=== PATIENT | female | born 1995 | race Caucasian/White ===

== ENCOUNTER 2020-11-12 10:02 | Emergency (ER) | payer OTHER, SELFPAY ==
--- NOTE | 2020-11-12 10:05 | ED.SKABFB ---
HPI - Skin/Abscess/Foreign Bdy General Chief complaint: Extremity Problem,Nontraumatic Stated complaint: rt hand lump on finger Time Seen by Provider: 11/12/20 10:05 Source: patient and RN notes reviewed History of Present Illness HPI narrative: Patient is a 25-year-old female who presents the urgent care with complaints of a hard lump on her right index finger. Patient states it has been there approximately 3 or 4 weeks and it does not seem to bother her unless she hits it on something . Patient states that it seems to have possibly gotten larger. Denies of any known injury to the finger. Currently denies of any pain. Denies of any swelling or redness. No other acute complaints. No acute distress noted. Patient aware of the plan of care. Some parts of this dictation were generated by voice recognition software and may contain typographical and/or grammatical inaccuracies. Related Data Home Medications Medication Instructions Recorded Confirmed norgestimate 0.25 mg-ethinyl 1 tablet PO DAILY 10/28/19 estradiol 35 mcg tablet Allergies Allergy/AdvReac Type Severity Reaction Status Date / Time No Known Allergies Allergy Unknown Verified 11/12/20 10:13 Review of Systems Review of Systems: Narrative: CONSTITUTIONAL: Denies fever, chills, or sweats. EYES: Denies visual changes, redness, or discharge. ENT: Denies rhinorrhea, congestion, sore throat, or otalgia. CARDIOVASCULAR: Denies chest pain, palpitations, or edema. RESPIRATORY: Denies cough or dyspnea. GASTROINTESTINAL: Denies abdominal pain, nausea, vomiting, or diarrhea. GENITOURINARY: Denies dysuria or hematuria. SKIN: Reports of a lump on the right index finger MUSCULOSKELETAL: Denies back pain, joint pain, or myalgia. NEUROLOGIC: Denies headache, numbness, or weakness. All other systems reviewed are negative, except as documented in HPI. [facility] Past Medical History Medical History (Updated 11/12/20 @ 10:14 by MATT Baltazar) Depression POLLO (generalized anxiety disorder) Surgical History Surgical History H/O foot surgery s/p plantar fasciitis surgery on R x 2 Family History Family History Father Hypertension Social History Social History (Updated 08/18/20 @ 13:12 by Beronica Tee) Smoking status: Never smoker Second hand tobacco smoke exposure: No Alcohol intake: never Substance use: never Substance use type: does not use Gender identity (if verbalized by the patient): Female Comments At the time of my signature, I reviewed and agree with the nursing past medical, surgical, social, and family history. There is no relevant family history pertinent to the patient complaint. Exam Narrative: Exam Narrative: GENERAL: This is a well-nourished, well-developed patient, in no apparent distress. HEAD: normocephalic, atraumatic. EYES: PERRL. Sclera clear/white. Vision is grossly intact. EARS: External ears normal NOSE: External nose normal with no obvious nasal discharge, nares without redness, no rhinorrhea. THROAT: Mucous membranes moist NECK: Neck supple SKIN: Pea-sized, likely sebaceous/ganglion cyst, to the proximal aspect of the DIP of the right index finger without erythema, edema or any obvious injury. Warm, intact with no suspicious lesions or rash, good texture and turgor. NEURO: awake, alert, and oriented to person, place and time. There were no obvious focal neurologic abnormalities. EXTREMITIES: No clubbing, cyanosis, or edema. Capillary refill less than 2 seconds to right upper extremity with positive strong right radial pulse. Course Vital Signs Vital signs: Vital Signs Temperature 98.5 F 11/12/20 10:08 Pulse Rate 73 11/12/20 10:08 Respiratory Rate 20 11/12/20 10:08 Blood Pressure 133/84 11/12/20 10:08 Pulse Oximetry 100 11/12/20 10:08 Temperature 98.5 F 11/12/20 10:
[2020-11-12 10:08] VITALS: BP 133/84; PULSE 73; RESP 20; TEMP 36.9; O2SAT 100
[2020-11-12 10:15] VITALS: BP 133/84; PULSE 73; RESP 20; TEMP 36.9; O2SAT 100
== END 2020-11-12 10:19 | disposition home or self-care (01) ==
PROVIDERS: Emergency Provider Nurse Practitioner Family; PCP Family Medicine
DX: M67.441 Ganglion, right hand (principal); F41.9 Anxiety disorder, unspecified; F32.9 Major depressive disorder, single episode, unspecified
CPT/HCPCS: 99211; G0463

== ENCOUNTER → 2020-11-17 11:28 | Outpatient (CLI) | payer OTHER, SELFPAY ==
[2020-11-17 14:22] LABS: Influenza Control Positive
[2020-11-17 23:33] LABS: SARS-CoV-2 RNA PCR Negative
== END ==
PROVIDERS: PCP Family Medicine; Visit Provider Physician Assistant
DX: Z20.822 Contact with and (suspected) exposure to COVID-19 (principal); R05 Cough; R50.9 Fever, unspecified
CPT/HCPCS: 87804; C9803; U0003; U0005

== ENCOUNTER 2020-11-23 12:00 | Emergency (ER) | payer OTHER, SELFPAY ==
[2020-11-23 12:10] VITALS: BP 137/86; PULSE 111; RESP 20; TEMP 36.7; O2SAT 99
--- NOTE | 2020-11-23 12:11 | ED.GENADULT ---
HPI - General Adult General Chief complaint: Upper Respiratory Infection Stated complaint: sinus issues/vomiting Time Seen by Provider: 11/23/20 12:11 Source: patient and RN notes reviewed Mode of arrival: ambulatory Limitations: no limitations History of Present Illness HPI narrative: 25-year-old female presents with complaints of upper respiratory infection symptoms, cough, intermittent nausea, vomiting, and headaches (not the worst of her life) for the past 8 days. Lazaro reports increasing symptoms over the past 48 hours with increase anxiety, diarrhea, and heart burn. Augmentin, Tessalon Perles, and Imodium without relief. Dry cough without chest congestion. Rhinorrhea and nasal congestion. No high fevers, chills, or sweats. Nausea, vomiting, diarrhea without abdominal pain. Last emesis episode 03:00am without blood continue to have intermittent nausea. Last diarrhea episode 30 minutes prior to arrival, 3 episodes today without blood. Denies chest pain, coughing up blood, jaw pain, dental pain, facial pain, foreign body sensation, and rash. LMP current started 11/22/2020 and on control. Remains active. The patient reports she had was diagnosed with COVID-06 August 2020. The patient reports she is not waiting for the results of a COVID-19 lab test. The patient reports she had a NEGATIVE COVID-19 test and Influenza test 5 days ago. The patient reports she do not have weakness, myalgia, or fatigue. The patient reports he do not have a worsening cough or shortness of breath. The patient reports he do not have any loss of smell or taste or diarrhea. Denies recent traveling. Denies concerns for COVID-19 or exposures been home with limited outdoor exposure except for essential household needs and return home. At this time, patient is not suspected of having COVID-19. Some parts of this dictation were generated by voice recognition software and may contain typographical and/or grammatical inaccuracies. Related Data Home Medications Medication Instructions Recorded Confirmed norgestimate 0.25 mg-ethinyl 1 tablet PO DAILY 10/28/19 11/23/20 estradiol 35 mcg tablet Allergies Allergy/AdvReac Type Severity Reaction Status Date / Time No Known Allergies Allergy Unknown Verified 11/24/20 11:02 Review of Systems Review of Systems: Narrative: CONSTITUTIONAL: Denies fever, chills, sweats. EYES: Denies visual changes, redness, discharge. ENT: Complains of rhinorrhea, congestion. Denies sore throat, otalgia. CARDIOVASCULAR: Denies chest pain, palpitations, edema. RESPIRATORY: Denies wheezing, dyspnea. Complains of cough. GASTROINTESTINAL: Denies abdominal pain. Complains of nausea, vomiting, diarrhea. GENITOURINARY: Denies dysuria, hematuria, abnormal discharge. SKIN: Denies rash or itching. MUSCULOSKELETAL: Denies acute back pain, joint pain, myalgia. NEUROLOGIC: Denies numbness or focal weakness. PSYCHIATRIC: Denies anxiety or depression. Complains of intermittent FRANZ. All systems reviewed & are unremarkable except as noted in HPI and below. [facility] Past Medical History Medical History Depression POLLO (generalized anxiety disorder) Surgical History Surgical History H/O foot surgery s/p plantar fasciitis surgery on R x 2 Family History Family History (Updated 11/23/20 @ 12:54 by MATT Paige) Father Hypertension Mother Alive and well Social History Social History (Updated 11/24/20 @ 11:05 by Simran Castellano MA) Smoking status: Never smoker Tobacco type: cigarettes Second hand tobacco smoke exposure: No Alcohol intake: current Substance use: never Substance use type: does not use Living arrangements: with family Occupation/Education: unemployed Gender identity (if verbalized by the patient): Female Comments At time of signature, agree with nurse
[2020-11-23 12:20] VITALS: BP 137/86; PULSE 111; RESP 20; TEMP 36.7; O2SAT 99
[2020-11-23] MEDS: LIDOCAINE HCL 2% VISC SOLN 15 ML UDC PO (13:00)
[2020-11-23] MEDS: MAG HYDROX/AL HYDROX/SIMETH 30 ML UDC PO (13:00)
[2020-11-23] MEDS: ONDANSETRON HCL ODT 4 MG TABLET PO (13:00)
== END 2020-11-23 13:14 | disposition home or self-care (01) ==
PROVIDERS: Emergency Provider Nurse Practitioner Family; PCP Family Medicine
DX: J01.00 Acute maxillary sinusitis, unspecified (principal); K21.9 Gastro-esophageal reflux disease without esophagitis; R11.2 Nausea with vomiting, unspecified
CPT/HCPCS: 99213; A9270; G0463

== ENCOUNTER → 2021-09-17 09:33 | Outpatient (CLI) | payer OTHER, SELFPAY ==
[2021-09-17 20:43] LABS: SARS-CoV-2 RNA PCR Positive
== END ==
PROVIDERS: PCP Family Medicine; Visit Provider Physician Assistant
DX: U07.1 COVID-19 (principal)
CPT/HCPCS: C9803; U0003; U0005

== ENCOUNTER 2022-01-26 19:20 | Emergency (ER) | payer OTHER, SELFPAY ==
--- NOTE | ~2022-01-26 | XR_ITS ---
EXAM: XR foot RT min 3V HISTORY: pain 4th and 5th metatarsal area COMPARISON: None available FINDINGS: Normal mineralization. No fracture or dislocation. No lytic or blastic lesion. Joint space s maintained. Plantar enthesopathy. No erosion or periosteal change. Soft tissues within normal limit s. IMPRESSION: No acute osseous finding in the right foot. Reviewed, dictated and finalized at location K.
[2022-01-26 19:31] VITALS: BP 149/76; PULSE 97; RESP 16; TEMP 36.6; O2SAT 100
--- NOTE | 2022-01-26 19:31 | ED.LOWEXIN ---
HPI - Extremity Injury (Lower) General Chief Complaint: Extremity Injury, Lower Stated Complaint: INJURED R FOOT/ANKLE Time Seen by Provider: 01/26/22 19:30 Source: patient, family, RN notes reviewed and old records reviewed History of Present Illness HPI Narrative: 27-year-old female accompanied by her spouse presents to [facility] with complaints of injury to her right foot which occurred after patient twisted it this morning outward. Patient reports that she was in a a hurry this morning trying to get ready to go to work and slipped out of her sandal and twisted her right foot, Patient states that she has been putting ice on her foot and she has been elevating her foot as much as possible today and has been taking Ibuprofen. Patient states that when she puts weight on her foot she has pain on the lateral aspect of her foot and also in the arch of her foot. complaint: foot injury Onset (ago): hour(s) (this morning around 0800) Related Data Allergies Allergy/AdvReac Type Severity Reaction Status Date / Time No Known Allergies Allergy Unknown Verified 12/24/21 15:31 Review of Systems Review of Systems: CONSTITUTIONAL: Denies fever, chills, or sweats. EYES: Denies visual changes, redness, or discharge. ENT: Denies rhinorrhea, congestion, sore throat, or otalgia. CARDIOVASCULAR: Denies chest pain, palpitations, or edema. RESPIRATORY: Denies cough or dyspnea. GASTROINTESTINAL: Denies abdominal pain, nausea, vomiting, or diarrhea. GENITOURINARY: Denies dysuria or hematuria. SKIN: Denies rash or itching. MUSCULOSKELETAL: Denies back pain, positive for right foot pain, or myalgia. NEUROLOGIC: Denies headache, numbness, or weakness. PSYCHIATRIC: Positive history of anxiety or depression. All systems reviewed & are unremarkable except as noted in HPI and below PMFSH Past Medical History Medical History Depression POLLO (generalized anxiety disorder) Surgical History Surgical History H/O foot surgery s/p plantar fasciitis surgery on R x 2 Family History Family History Father Hypertension Mother Alive and well Social History Social History Smoking status: Never smoker Tobacco type: cigarettes Second hand tobacco smoke exposure: No Alcohol intake: current Alcohol use details: rare Substance use: never Substance use type: does not use Gender identity (if verbalized by the patient): Female Sexual Orientation (if Verbalized by the Patient): Straight or Heterosexual Comments At time of signature, agree with nursing past medical, surgical, social and family history. There is no relevant family history pertinent to the presenting complaint Exam Narrative: GENERAL: Well-appearing, well-nourished, and in no acute distress. HEAD: Normocephalic, atraumatic. EYES: PERRLA and EOMI. ENT: Nares clear, no rhinorrhea or epistaxis. Mucous membranes moist.TM's normal with good light reflex, throat pink with no lesions or exudates NECK: Supple.no lymphadenopathy CHEST: Clear to auscultation. No respiratory distress. no cough or any tachypnea noted, SAO2 100% on room air HEART: Regular rate and rhythm. No murmur heard. Normal peripheral pulses. ABDOMEN: Soft, nontender, nondistended, normal active bowel sounds. EXTREMITIES: Normal range of motion. No edema.Exception noted to right lateral foot with mild edema noted and some bruising, mobility intact with increase in pain and increase pain with weight bearing voiced, circulation and sensation intact to right foot with strong pedal pulse right foot. SKIN: Warm, dry, no rash. NEURO: No focal deficits. Alert and oriented x3. Course Course Level of Care: Express Care Visit Vital Signs Vital signs: Vital Signs Temperature 36.6 C 01/26/22 19:31 Pulse
== END 2022-01-26 20:11 | disposition home or self-care (01) ==
PROVIDERS: Emergency Provider Registered Nurse; PCP Family Medicine
DX: S93.601A Unspecified sprain of right foot, initial encounter (principal); X50.9XXA Other and unspecified overexertion or strenuous movements or postures, initial encounter
CPT/HCPCS: 73630; 99213; G0463

== ENCOUNTER 2022-11-07 12:00 | Emergency (ER) | payer OTHER, SELFPAY ==
[2022-11-07 12:12] VITALS: BP 156/101; PULSE 116; RESP 16; TEMP 37; O2SAT 99
--- NOTE | 2022-11-07 12:29 | ED.URI ---
HPI - URI/Sore Throat General Chief Complaint: Upper Respiratory Infection Stated Complaint: cough, fever, nausea, vomitting, diarrhea Time Seen by Provider: 11/07/22 12:45 Source: patient and RN notes reviewed Mode of arrival: ambulatory Limitations: no limitations History of Present Illness HPI Narrative: 27-year-old female presents concern for 2 week history sinus congestion, copious postnasal drainage, cough. She reports she tested positive for COVID last week. Reports her symptoms started to improve, however her sinus pain pressure, drainage is worse, the cough seems deeper. She also reports yesterday she began having diarrhea and vomiting that lasted through the night, she has not had vomiting or diarrhea today. She denies abdominal pain, fever. Reports she is taking multiple [id number] medications without relief. MD elicited complaint: cough, nasal congestion and sinus pain Related Data Allergies Allergy/AdvReac Type Severity Reaction Status Date / Time No Known Allergies Allergy Unknown Verified 11/07/22 12:14 Review of Systems Review of Systems: CONSTITUTIONAL: Reports malaise. Denies chills, sweats, or fever. EYES: Denies visual changes, redness, or discharge. ENT: Reports rhinorrhea, congestion, sinus pain. Denies otalgia and sore throat. CARDIOVASCULAR: Denies chest pain, palpitations, or edema. RESPIRATORY: Reports deep cough. Denies dyspnea. GASTROINTESTINAL: Denies abdominal pain. Reports nausea, vomiting, diarrhea SKIN: Denies rash or itching. MUSCULOSKELETAL: Denies myalgia. NEUROLOGIC: Denies headache. All systems reviewed & are unremarkable except as noted in HPI and below PMFSH Past Medical History Medical History Depression POLLO (generalized anxiety disorder) Surgical History Surgical History H/O foot surgery s/p plantar fasciitis surgery on R x 2 Family History Family History Father Hypertension Mother Alive and well Social History Social History Smoking status: Never smoker Tobacco type: cigarettes Second hand tobacco smoke exposure: No Alcohol intake: current Alcohol use details: rare Substance use: never Substance use type: does not use Living arrangements: with family Occupation/Education: unemployed Gender identity (if verbalized by the patient): Female Sexual Orientation (if Verbalized by the Patient): Straight or Heterosexual Comments At time of signature, agree with nursing past medical, surgical, social and family history. There is no relevant family history pertinent to the presenting complaint Exam Narrative: GENERAL: Nontoxic appearing and in no acute distress. HEAD: Normocephalic EYES: PERRLA, conjunctivae clear ENT: Nares clear, turbinates edematous and erythematous, green discharge. Mucous membranes moist. TM pearly villanueva with dull light reflex bilaterally; no tragal tenderness. Oropharynx not erythematous without lesions. Tonsils not enlarged and without exudate, no drooling, no hoarseness, no trismus, uvula midline. NECK: Supple. No lymphadenopathy CHEST: Clear to auscultation, breath sounds equal. No wheezing, rhonchi, rales, or stridor. No respiratory distress, speaks in full sentences. Cough noted HEART: Regular rate and rhythm. No murmur heard. SKIN: Warm, dry, no rash. NEURO: Alert and oriented x3. PSYCH: Normal mood and affect Course Course Emergency Course: Patient is aware of diagnosis, understands and agrees to treatment plan. Anticipatory guidance given. Patient agrees to follow-up as directed and is aware of reasons to seek care at the emergency department. Portions of this record may have been created with voice recognition software Level of Care: Express Care Visit Vital Signs Vital signs: Vital Signs
== END 2022-11-07 13:00 | disposition home or self-care (01) ==
PROVIDERS: Emergency Provider Nurse Practitioner; PCP Family Medicine
DX: J32.9 Chronic sinusitis, unspecified (principal); J40 Bronchitis, not specified as acute or chronic; R11.2 Nausea with vomiting, unspecified; R19.7 Diarrhea, unspecified; Z86.16 Personal history of COVID-19; F41.1 Generalized anxiety disorder; F32.A Depression, unspecified
CPT/HCPCS: 87081; 87804; 87880; 99213; G0463

== ENCOUNTER 2022-11-14 15:31 | Emergency (ER) | payer OTHER, SELFPAY ==
[2022-11-14 15:37] VITALS: BP 121/86; PULSE 99; RESP 16; TEMP 36.5; O2SAT 100
--- NOTE | 2022-11-14 15:41 | ED.URI ---
HPI - URI/Sore Throat General Chief Complaint: Upper Respiratory Infection Stated Complaint: sinus drainage, fever, nausea Time Seen by Provider: 11/14/22 15:50 Source: patient and RN notes reviewed Mode of arrival: ambulatory Limitations: no limitations History of Present Illness HPI Narrative: 27-year-old female presents with concern for copious postnasal drainage, nausea due to the drainage, sinus congestion, low-grade temperature. Reports she has sick for about 3 weeks, she received a Medrol Dosepak last week which did not improve her symptoms. She reports she vomited several earlier this week she has not vomited in 3-4 days. MD elicited complaint: rhinorrhea and nasal congestion Related Data Allergies Allergy/AdvReac Type Severity Reaction Status Date / Time No Known Allergies Allergy Unknown Verified 11/14/22 15:40 Review of Systems Review of Systems: CONSTITUTIONAL: Reports malaise, low-grade fever. EYES: Denies visual changes, redness, or discharge. ENT: Reports rhinorrhea, congestion, sinus pain. Denies otalgia and sore throat. CARDIOVASCULAR: Denies chest pain, palpitations, or edema. RESPIRATORY: Reports cough. Denies dyspnea. GASTROINTESTINAL: Denies abdominal pain, vomiting, diarrhea. Reports nausea SKIN: Denies rash or itching. MUSCULOSKELETAL: Denies myalgia. NEUROLOGIC: Denies headache. All systems reviewed & are unremarkable except as noted in HPI and below PMFSH Past Medical History Medical History Depression POLLO (generalized anxiety disorder) Surgical History Surgical History H/O foot surgery s/p plantar fasciitis surgery on R x 2 Family History Family History Father Hypertension Mother Alive and well Social History Social History Smoking status: Never smoker Tobacco type: cigarettes Second hand tobacco smoke exposure: No Alcohol intake: current Alcohol use details: rare Substance use: never Substance use type: does not use Living arrangements: with family Occupation/Education: unemployed Gender identity (if verbalized by the patient): Female Sexual Orientation (if Verbalized by the Patient): Straight or Heterosexual Comments At time of signature, agree with nursing past medical, surgical, social and family history. There is no relevant family history pertinent to the presenting complaint Exam Narrative: GENERAL: Well-appearing, well-nourished, and in no acute distress. HEAD: Normocephalic EYES: PERRLA, conjunctivae clear ENT: Nares clear, turbinates edematous and erythematous, yellow discharge. Mucous membranes moist. TM pearly villanueva with dull light reflex bilaterally; no tragal tenderness. Oropharynx not erythematous without lesions. Tonsils not enlarged and without exudate, no drooling, no hoarseness, no trismus, uvula midline. NECK: Supple. No lymphadenopathy CHEST: Clear to auscultation, breath sounds equal. No wheezing, rhonchi, rales, or stridor. No respiratory distress, speaks in full sentences. HEART: Regular rate and rhythm. No murmur heard. SKIN: Warm, dry, no rash. NEURO: Alert and oriented x3. PSYCH: Normal mood and affect Course Course Emergency Course: Patient is aware of diagnosis, understands and agrees to treatment plan. Anticipatory guidance given. Patient agrees to follow-up as directed and is aware of reasons to seek care at the emergency department. Portions of this record may have been created with voice recognition software Level of Care: Express Care Visit Vital Signs Vital signs: Vital Signs Temperature 97.7 F 11/14/22 15:37 Pulse Rate 99 11/14/22 15:37 Respiratory Rate 16 11/14/22 15:37 Blood Pressure 121/86 11/14/22 15:37 Pulse Oximetry 100 11/14/22 15:37 Oxygen Delivery Room Air 11/14/22 15:37
[2022-11-14 15:42] VITALS: BP 121/86; PULSE 99; RESP 16; TEMP 36.5; O2SAT 100
== END 2022-11-14 16:02 | disposition home or self-care (01) ==
PROVIDERS: Emergency Provider Nurse Practitioner; PCP Family Medicine
DX: J01.90 Acute sinusitis, unspecified (principal); F32.A Depression, unspecified
CPT/HCPCS: 99213; G0463

== ENCOUNTER 2022-12-11 10:00 | Emergency (ER) | payer OTHER, SELFPAY ==
--- NOTE | 2022-12-11 10:08 | ED.URI ---
HPI - URI/Sore Throat General Chief Complaint: Upper Respiratory Infection Stated Complaint: SORE THROAT/COUGH/SWOLLEN TONSILS Source: patient and RN notes reviewed History of Present Illness HPI Narrative: 27-year-old female presents to urgent care with complaints a sore throat for last 2 days. patient also reports a runny nose for last months. Denies any fevers, chills, chest pain shortness of breath, vomiting diarrhea denies any ear pain dizziness. Patient states she uses a nasal spray and take Sudafed almost daily with minimal relief. Some parts of this dictation were generated by voice recognition software and may contain typographical and/or grammatical inaccuracies. Related Data Home Medications Medication Instructions Recorded Confirmed lorazepam 0.5 mg tablet mg 12/11/22 Allergies Allergy/AdvReac Type Severity Reaction Status Date / Time No Known Allergies Allergy Unknown Verified 12/11/22 10:20 Review of Systems Review of Systems: Pertinent positives and pertinent negatives per HPI. PMFSH Past Medical History Medical History Depression POLLO (generalized anxiety disorder) Surgical History Surgical History H/O foot surgery s/p plantar fasciitis surgery on R x 2 Family History Family History Father Hypertension Mother Alive and well Social History Social History Smoking status: Never smoker Tobacco type: cigarettes Second hand tobacco smoke exposure: No Alcohol intake: current Alcohol use details: rare Substance use: never Substance use type: does not use Living arrangements: with family Occupation/Education: unemployed Gender identity (if verbalized by the patient): Female Sexual Orientation (if Verbalized by the Patient): Straight or Heterosexual Comments At the time of my signature, I reviewed and agree with the nursing past medical, surgical, social, and family history. There is no relevant family history pertinent to the patient complaint. Exam Narrative: GENERAL: This is a well-nourished, well-developed patient, in no apparent distress. HEAD: normocephalic, atraumatic. EYES: PERRL. Sclera clear/white. Vision is grossly intact. EARS: External ears normal, auditory canals clear and without drainage, TMs normal without perforation. Hearing grossly intact. NOSE: rhinorrhea. THROAT: Mucous membranes moist, posterior pharynx erythremic. NECK: Neck supple, non-tender without lymphadenopathy, masses or thyromegaly. CARDIOVASCULAR: Regular rate and rhythm without murmurs, gallops, or rubs. RESPIRATORY: Clear to auscultation. Breath sounds equal bilaterally. No wheezes, rales, or rhonchi. GASTROINTESTINAL: Abdomen soft, non-tender, nondistended. Bowel sounds are active. No hepato-splenomegaly, or palpable masses. No guarding. SKIN: warm, intact with no suspicious lesions or rash, good texture and turgor. NEURO: awake, alert, and oriented to person, place and time. There were no obvious focal neurologic abnormalities. Course Course Level of Care: Express Care Visit Vital Signs Vital signs: Vital Signs Temperature 97.7 F 12/11/22 10:26 Pulse Rate 93 12/11/22 10:26 Respiratory Rate 16 12/11/22 10:26 Blood Pressure 137/97 H 12/11/22 10:26 Pulse Oximetry 100 12/11/22 10:26 Temperature 97.7 F 12/11/22 10:26 Pulse Rate 93 12/11/22 10:26 Respiratory Rate 16 12/11/22 10:26 Blood Pressure 137/97 H 12/11/22 10:26 Pulse Oximetry 100 12/11/22 10:26 reviewed. MDM - URI/Sore Throat MDM Narrative Medical decision making narrative: Rapid strep is negative in the office; however we will send to the lab for confirmation; there is a small percentage chance that it can come back positive; if it is, we will call you in 2-3days; a
[2022-12-11 10:26] VITALS: BP 137/97; PULSE 93; RESP 16; TEMP 36.5; O2SAT 100
== END 2022-12-11 11:10 | disposition home or self-care (01) ==
PROVIDERS: Emergency Provider Nurse Practitioner Family; PCP Family Medicine
DX: J02.9 Acute pharyngitis, unspecified (principal); F32.A Depression, unspecified; F41.9 Anxiety disorder, unspecified
CPT/HCPCS: 87081; 87880; 99213; G0463

== ENCOUNTER 2023-05-29 19:45 | Emergency (ER) | payer OTHER, SELFPAY ==
[2023-05-29 19:58] VITALS: BP 126/89; PULSE 72; RESP 16; TEMP 36.4; O2SAT 100
--- NOTE | 2023-05-29 20:16 | ED.URI ---
HPI - URI/Sore Throat General Chief Complaint: Upper Respiratory Infection Stated Complaint: Sore Throat Time Seen by Provider: 05/29/23 20:12 Source: patient and RN notes reviewed Mode of arrival: ambulatory Limitations: no limitations History of Present Illness HPI Narrative: Patient presents today complaining of 2-3 day history of subjective fever, sore throat, cough, congestion, rhinorrhea. She currently rates her sore throat 2/10 and has been taking ibuprofen and Sudafed with mild relief. Pain increases with swallowing. She took a home COVID test yesterday that was negative. Related Data Home Medications Medication Instructions Recorded Confirmed lorazepam 0.5 mg tablet 0.5 mg PO BID PRN Anxiety 12/11/22 05/29/23 Allergies Allergy/AdvReac Type Severity Reaction Status Date / Time No Known Allergies Allergy Unknown Verified 05/29/23 20:00 Review of Systems Review of Systems: CONSTITUTIONAL: Denies body aches, chills, or sweats.+ subjective fever EYES: Denies visual changes, redness, or discharge. ENT: Denies otalgia.+ sore throat, congestion, rhinorrhea CARDIOVASCULAR: Denies chest pain, palpitations, or edema. RESPIRATORY: Denies dyspnea.+ cough GASTROINTESTINAL: Denies abdominal pain, nausea, vomiting, or diarrhea. GENITOURINARY: Denies dysuria or hematuria. SKIN: Denies rash, itching, or wounds. MUSCULOSKELETAL: Denies back pain, joint pain, or myalgia. NEUROLOGIC: Denies headache, numbness, tingling, or weakness. PSYCH: Denies depression or anxiety. [facility] Past Medical History Medical History Depression POLLO (generalized anxiety disorder) Surgical History Surgical History H/O foot surgery s/p plantar fasciitis surgery on R x 2 Family History Family History Father Hypertension Mother Alive and well Social History Social History Smoking status: Never smoker Tobacco type: cigarettes Second hand tobacco smoke exposure: No Alcohol intake: current Alcohol use details: rare Substance use: never Substance use type: does not use Living arrangements: with family Occupation/Education: unemployed Gender identity (if verbalized by the patient): Female Sexual Orientation (if Verbalized by the Patient): Straight or Heterosexual Comments At time of signature, I have reviewed and agree with nursing past medical, surgical, social and family history unless otherwise noted. Please see nursing chart for further information. There is no relevant family history pertinent to the presenting complaint Exam Narrative: GENERAL: Well-appearing, well-nourished, and in no acute distress. HEAD: Normocephalic, atraumatic. EYES: EOMI. No redness or drainage. Conjunctivae normal. ENT: Mucous membranes pink and moist. Nares congestion with rhinorrhea. TMs normal bilaterally. Throat erythematous. Tonsils 2+ with white exudate. Uvula midline. NECK: Normal AROM. Supple. No lymphadenopathy. CHEST: No respiratory distress. Clear to auscultation. HEART: Regular rate and rhythm. No murmur appreciated. Normal peripheral pulses. EXTREMITIES: Normal range of motion. No edema. SKIN: Warm, dry, no rash. Capillary refill normal. Normal skin turgor. NEURO: No focal deficits. Alert and oriented x3. Gait steady. PSYCH: Normal affect. No signs of depression or anxiety. Course Course Level of Care: Express Care Visit Vital Signs Vital signs: Vital Signs Temperature 97.6 F 05/29/23 19:58 Pulse Rate 72 05/29/23 19:58 Respiratory Rate 16 05/29/23 19:58 Blood Pressure 126/89 05/29/23 19:58 Pulse Oximetry 100 05/29/23 19:58 Oxygen Delivery Room Air 05/29/23 19:58 Temperature 97.6 F 05/29/23 19:58 Pulse Rate 72 05/29/23
== END 2023-05-29 20:24 | disposition home or self-care (01) ==
PROVIDERS: Emergency Provider Nurse Practitioner; PCP Family Medicine
DX: J06.9 Acute upper respiratory infection, unspecified (principal); F41.1 Generalized anxiety disorder
CPT/HCPCS: 87081; 87880; 99213; G0463

== ENCOUNTER 2023-08-21 07:46 | Observation (INO) | payer OTHER, SELFPAY ==
[2023-08-21] VITALS (21 sets, daily range): BP systolic 130–150; BP diastolic 78–94; PULSE 77–118; RESP 13–24; TEMP 36.4–37.1; O2SAT 97–100; BMI 36.2
--- NOTE | ~2023-08-21 | XR_ITS ---
Portable chest x-ray Comparison: 12/28/2015 Clinical History: Shortness of breath Findings: Lungs are clear, without focal consolidation or pleural effusion. Cardiomediastinal silho uette is stable. Bones and soft tissues are unremarkable. Impression: Clear lungs. Reviewed, dictated and finalized at location . [employer] Impression: Clear lungs.
--- NOTE | 2023-08-21 08:03 | ED.GENADULT ---
HPI - General Adult General Chief complaint: Upper Respiratory Infection Stated complaint: URI, fever Time Seen by Provider: 08/21/23 07:52 History of Present Illness HPI narrative: patient is a 28-year-old female who presents to the ER with shortness of breath and coughing. Patient began having cold symptoms 4 days ago. Associated with fever as well as sinus congestion and productive cough. She did a COVID swab that was negative. She had been doing well but then this morning she woke up and she is having frequent coughing the cannot be controlled. She denies history of asthma. No chest pain. Related Data Home Medications Medication Instructions Recorded Confirmed lorazepam 0.5 mg tablet 0.5 mg PO BID PRN Anxiety 08/21/23 08/21/23 vortioxetine 20 mg tablet 20 mg PO HS 08/21/23 08/21/23 Allergies Allergy/AdvReac Type Severity Reaction Status Date / Time No Known Allergies Allergy Unknown Verified 08/21/23 07:52 Review of Systems Review of Systems: All systems reviewed & are unremarkable except as noted in HPI and below Constitutional: Constitutional: Reports chills, Reports fatigue and Reports fever(s) ENT: Reports nasal congestion and Reports sore throat Cardiovascular: Cardiovascular: Reports no additional cardiovascular complaints Respiratory: Respiratory: Reports cough and Reports dyspnea Gastrointestinal: Gastrointestinal: Reports no additional gastrointestinal complaints PMF[facility] Past Medical History Medical History Depression POLLO (generalized anxiety disorder) Surgical History Surgical History H/O foot surgery s/p plantar fasciitis surgery on R x 2 Family History Family History (Updated 08/21/23 @ 18:40 by Mariana Pratt LPN) Father Hypertension Mother Alive and well Hyperthyroidism Grandparent Lymphoma Cerebrovascular accident Diabetes mellitus Heart disease Social History Social History Smoking status: Never smoker Tobacco type: cigarettes Second hand tobacco smoke exposure: Yes Alcohol intake: current Alcohol use details: rare Substance use: never Substance use type: does not use Living arrangements: with family Occupation/Education: unemployed Gender identity (if verbalized by the patient): Female Sexual Orientation (if Verbalized by the Patient): Straight or Heterosexual Exam Narrative: GENERAL: Well-appearing, well-nourished, and in no acute distress. HEAD: Normocephalic, atraumatic. CHEST: Clear to auscultation. Mild respiratory distress with frequent coughing. HEART: Regular rate and rhythm. Normal peripheral pulses. EXTREMITIES: Normal range of motion. No edema. SKIN: Warm, dry, no rash. NEURO: Alert and oriented x3. PSYCH: Normal mood and affect. Course Course Emergency Course: patient with only short amount of relief with nebulizer treatment. Patient still is some faint wheezing. Frequent coughing is persistent despite Cepacol and steroids. Will admit for observation as I do not feel patient go home as she is only able speak in 2-3 word sentences due to frequent coughing and dyspnea. Vital Signs Vital signs: Vital Signs Temperature 98.7 F 08/21/23 07:49 Pulse Rate 85 08/21/23 07:49 Respiratory Rate 20 08/21/23 07:49 Blood Pressure 145/94 H 08/21/23 07:49 Pulse Oximetry 100 08/21/23 07:49 Oxygen Delivery Room Air 08/21/23 07:49 Temperature 98.3 F 08/21/23 18:44 Pulse Rate 82 08/21/23 18:44 Respiratory Rate 21 H 08/21/23 18:44 Blood Pressure 150/90 H 08/21/23 18:44 Pulse Oximetry 97 08/21/23 18:44 Oxygen Delivery Room Air 08/21/23 08:11 Medical Decision Making Vital Signs Vital Signs: Vital Signs Temperature 98.7 F 08/21/23 07:49 Pulse Rate 85 08/21/23 07:49 Respiratory Rate 20
[2023-08-21] MEDS: ALBUTEROL SULFATE NEB 2.5 MG/3 ML INH INHALATION ×3 (08:04→19:58)
[2023-08-21] MEDS: IPRATROPIUM BR 0.02% INH SOLN 0.5 MG/2.5 ML VIAL INHALATION ×3 (08:04→19:58)
--- NOTE | 2023-08-21 08:13 | PC.NURSE ---
Pt presents with barking, hacky cough. Upper airway wheezes.
[2023-08-21] MEDS: IPRATROPIUM BR 0.02% INH SOLN 0.5 MG/2.5 ML VIAL 2 MG INHALATION (08:39)
[2023-08-21] MEDS: ALBUTEROL SULFATE NEB 2.5 MG/3 ML INH 10 MG INHALATION (08:40)
[2023-08-21] MEDS: predniSONE 20 MG TABLET 60 MG PO (09:37)
[2023-08-21] MEDS: BENZOCAINE/MENTHOL (*BKC) 18 EA LOZENGE 1 LOZENGE PO (11:57)
--- NOTE | 2023-08-21 11:58 | PC.NURSE ---
Pt ambulated to BR with steady gait. Shortness of breath with activity unable to converse. Pt recovers quickly once sitting down.
[2023-08-21 12:40] LABS: Basophils Percent Auto 0.2 % (0.2-1.2); Hematocrit 40.3 % (37.0-47.0); Hemoglobin 13.3 g/dL (12.0-15.0); Immature Granulocyte Absolute 0.01 K/mm3 (0.00-0.031); Immature Granulocyte Percent A 0.2 % (0-0.5); Lymphocytes Absolute Auto 0.51 K/mm3 (0.9-3.2); Lymphocytes Percent Auto 8.2 % (18.3-44.2); Mean Corpuscular Hemoglobin 27.5 pg (26-34); Mean Corpuscular Volume 83.3 fl (80-100); Mean Platelet Volume 9.6 fl (7.4-10.4); Monocytes Absolute Auto 0.1 K/mm3 (0.1-0.6); Monocytes Percent Auto 2.2 % (2.6-8.5); Neutrophils Absolute Auto 5.6 K/mm3 (1.3-6.7); Neutrophils Percent Auto 89.2 % (45.5-73.1); Platelet Count Result 187 k/mm3 (150-375); Red Blood Count 4.84 M/mm3 (4.2-5.4); Red Cell Distribution Width 13.7 % (11.5-14.5); White Blood Count 6.2 K/mm3 (4.5-10.0)
[2023-08-21] MEDS: guaiFENesin/CODEINE (*CRX) 200/20 MG 10 ML SYRUP PO ×2 (12:41→16:27)
[2023-08-21 12:52] LABS: Alanine Aminotransferase 22 U/L (6-35); Albumin Level 4.7 g/dL (3.5-5.1); Alkaline Phosphatase 77 U/L (38-126); Anion Gap 14 mmol/L (8-16); Aspartate Amino Transferase 34 U/L (14-36); Bilirubin,Total 0.4 mg/dL (0.2-1.3); Blood Urea Nitrogen 6 mg/dL (7-17); Calcium 9.3 mg/dL (8.4-10.2); Carbon Dioxide 20 mmol/L (22-30); Chloride 106 mmol/L (98-107); Estimated CRCL calculation 159 ml/min; Estimated Glomerular Filt Rate > 60; Glucose 116 mg/dL (65-110); Sodium 140 mmol/L (137-145)
[2023-08-21 13:20] LABS: Influenza A QL RT-PCR Positive (Negative); Influenza B QL RT-PCR Negative (Negative); SARS-CoV-2 RNA PCR Negative (Negative)
--- NOTE | 2023-08-21 17:33 | PM.IMHP ---
H&P: HPI History of Present Illness Date/Time: 08/21/23 16:45 Chief Complaint: Cough, fever, and shortness of breath. Narrative: This is a 28-year-old female with depression and anxiety presented to the emergency department via private vehicle for evaluation of cough, shortness of breath, and fever. The patient provides the following history. She has not been feeling well since with sore throat, cough, sinus congestion, decreased appetite, body aches, loose stools, and temperature up to 104? F. She has a relentless cough and feels like she is not able to catch her breath. She did a home COVID test which was negative. 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 Today she tested positive for influenza A. She received a nebulizer treatment and IV methylprednisolone in the ED which seemed to help her cough for may be 45 minutes. CMP and CBC were pretty unremarkable aside from a potassium of 3.0. Chest x-ray was clear. Due to continued cough and significant shortness of breath with ambulation (vital signs were stable) she is being admitted overnight for observation. She has no history of asthma or COPD. Nonsmoker, denies vaping. Review of Systems Review of Systems: Twelve systems were reviewed. Fever seems to have resolved. No vomiting. Continues to have some loose stools. No chest or pleuritic pain. She does have some soreness in her chest however with coughing. Except as documented, all other systems were reviewed and are negative. [facility] Past Medical History Medical History (Updated 08/21/23 @ 21:52 by Katja Carias PA-C) Depression Generalized anxiety disorder Surgical History Surgical History (Updated 08/21/23 @ 21:47 by Katja Carias PA-C) History of foot surgery Right foot surgery x2 for plantar fasciitis. Family History Family History Father Hypertension Mother Alive and well Hyperthyroidism Grandparent Lymphoma Cerebrovascular accident Diabetes mellitus Heart disease Social History Social History (Updated 08/21/23 @ 21:48 by Katja Carias PA-C) Social History: Surrogate medical decision maker: Juan Antonio Humphrey, spouse. Code status: Full code. Smoking status: Never smoker Second hand tobacco smoke exposure: Yes Alcohol intake: current Alcohol use details: Rare alcohol use in moderation. Substance use: current Substance use type: marijuana Lack of Transportation: No Lack of Food: Never True Current Housing: I Have Housing Concerned About Future Housing: No Difficulty Paying Gas/Electric Bills: No Difficulty Paying for Meds: No Currently Unemployed: No Education: Don't Know Difficulty w/ Childcare or Family Care: No Living arrangements: with family Additional occupation/education comments: Daycare. Spiritual care concerns: No Meds Home Medications and Allergies Home Medications Medication Instructions Recorded Confirmed Type lorazepam 0.5 mg tablet 0.5 mg PO BID PRN Anxiety 08/21/23 08/21/23 History vortioxetine 20 mg tablet 20 mg PO HS 08/21/23 08/21/23 History Allergies Allergy/AdvReac Type Severity Reaction Status Date / Time No Known Allergies Allergy Unknown Verified 08/21/23 07:52 Vital Signs Vital Signs - 24 hr 08/21/23 07:49 08/21/23 08:03 08/21/23 08:11 Temperature 98.7 F Pulse Rate 85 81 Respiratory Rate 20 15 Blood Pressure 145/94 H Pulse Oximetry 100 99 Oxygen Delivery Room Air Room Air 08/21/23 08:22 08/21/23 08:40 08/21/23 09:20 Temperature Pulse Rate 109 H 94 89 Respiratory Rate 20 19 22 H Blood Pressure Pulse Oximetry Oxygen Delivery 08/21/23 09:38 08/21/23 10:00 08/21/23 10:30 Temperature Pulse Rate 118 H 91 94 Respiratory Rate 24 H 20 20 Blood Pressure 147/78 H 140/89 141/88 H Pulse Oximetry 100 97 99 Oxygen Delivery 08/21/23 11:00 08/21/23 11:30 08/21/23 12:01 Temperature 97.9
[2023-08-21] MEDS: methylPREDNISolone SOD SUCC 125 MG VIAL 60 MG IV PUSH (18:05)
--- NOTE | 2023-08-21 18:28 | PC.NURSE ---
This patient, Lazaro Humphrey, was admitted to 3 [facility] Surg Room 320-01 at 1828. Patient/family oriented to hospital policies and general routines including ID bracelet, bed and alarms, visiting hours, pain management, procedures, bathroom and other care routines, personal items, smoking policy, room service/diet, and visiting hours. Information on how to activate the Rapid Response Team has been discussed. Patient/Family are encouraged to report perceived risks to care and to ask questions if they do not understand what they are told or what they should do.
[2023-08-21] MEDS: MORPHINE SULFATE (*CRX) 4 MG/ML INJ IV PUSH (18:58)
--- NOTE | 2023-08-21 21:41 | PHAR ---
HOME MED: TRINTELLIX (Vortioxetine) 20 MG TABLET, TAKE 1 BY MOUTH DAILY, VERIFIED IN PHARMACY COLOR: RED SHAPE: OVAL IMPRINT: 20 ; TL IMPRINT CODE DESCRIPTION: DEBOSSED WITH 20 ON ONE SIDE AND TL ON THE OTHER SIDE. FORM: ORAL TABLET
[2023-08-21] MEDS: POTASSIUM CHLORIDE 20 MEQ ER TABLET 40 MEQ PO (22:15)
[2023-08-22 06:00] VITALS: BP 140/79; PULSE 87; RESP 18; TEMP 36.2; O2SAT 99
[2023-08-22 06:52] LABS: Anion Gap 13 mmol/L (8-16); Blood Urea Nitrogen 9 mg/dL (7-17); Calcium 9.5 mg/dL (8.4-10.2); Carbon Dioxide 20 mmol/L (22-30); Chloride 108 mmol/L (98-107); Estimated CRCL calculation 157 ml/min; Estimated Glomerular Filt Rate > 60; Glucose 124 mg/dL (65-110); Magnesium 2.5 mg/dL (1.6-2.3); Potassium 3.6 mmol/L (3.4-5.0); Sodium 141 mmol/L (137-145)
--- NOTE | 2023-08-22 08:24 | PM.IMPN ---
Progress Note: A&P Assessment and Plan (1) Influenza A: Code(s): J10.1 - Influenza due to other identified influenza virus with other respiratory manifestations Status: Acute (2) Hypokalemia: Code(s): E87.6 - Hypokalemia Status: Acute (3) Cough: Code(s): R05.9 - Cough, unspecified Status: Acute (4) Shortness of breath: Code(s): R06.02 - Shortness of breath Status: Acute (5) Depression with anxiety: Code(s): F41.8 - Other specified anxiety disorders Status: Acute Plan Feeding: Analgesia: Thromboembolic prophylaxis: Ulcer prophylaxis: Glycemic control: Bowel regimen: Lines: Antibiotics: Disposition: Subjective Date/time seen: 08/22/23 08:24 Interval history: HPI obtained from the chart, This is a 28-year-old female with depression and anxiety presented to the emergency department via private vehicle for evaluation of cough, shortness of breath, and fever. The patient provides the following history. She has not been feeling well since with sore throat, cough, sinus congestion, decreased appetite, body aches, loose stools, and temperature up to 104? F. She has a relentless cough and feels like she is not able to catch her breath. She did a home COVID test which was negative. 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 Today she tested positive for influenza A. She received a nebulizer treatment and IV methylprednisolone in the ED which seemed to help her cough for may be 45 minutes. CMP and CBC were pretty unremarkable aside from a potassium of 3.0. Chest x-ray was clear. Due to continued cough and significant shortness of breath with ambulation (vital signs were stable) she is being admitted overnight for observation. She has no history of asthma or COPD. Nonsmoker, denies vaping. 08/22: Review of Systems Review of Systems: All systems reviewed & are unremarkable except as noted in HPI and below Exam Narrative: General: well appearing, well developed, well nourished, appears stated age. HEENT: normocephalic, atraumatic. Mucous membranes moist. EOMI, PERRLA, bilateral sclera anicteric, no conjunctival injection. Neck supple without JVD, lymphadenopathy, or bruit. Respiratory: clear to ascultation bilaterally. No rales/rhonic/wheezes. Cardiovascular: Regular rate and rhythm, normal S1-S2 upon ascultation. No murmurs, rubs, or clicks. PMI is nondisplaced, capillary re-fill less than 3 second. Abdomen: Soft, flat, no pulsatile masses, non-distended and non-tender. No rebound, no guarding. No CVA tenderness, no hepatosplenomegaly. Bowel sounds present to all four quadrants. No high pitch or tinkling sounds, resonant to percussion. Extremities: No cyanosis, clubbing, or edema present. Pulses are palpable 2/2. Active ROM to all four extremities. Neuro: Alert and orientated x 4. PERRLA. Cranial nerves 2-12 intact without focal deficit. Skin: Warm, dry, and intact, without rash, erythema, or lesion. Lines: Incisions: Psych: pleasant, cooperative, normal speech, normal affect, no hallucinations, no dysarthia Objective Data Vital Signs Vital Signs: Vital Signs - 24 hr 08/21/23 08:40 08/21/23 09:20 08/21/23 09:38 Temperature Pulse Rate 94 89 118 H Respiratory Rate 19 22 H 24 H Blood Pressure 147/78 H Pulse Oximetry 100 Oxygen Delivery Fraction of Inspired Oxygen 08/21/23 10:00 08/21/23 10:30 08/21/23 11:00 Temperature Pulse Rate 91 94 87 Respiratory Rate 20 20 22 H Blood Pressure 140/89 141/88 H 140/93 H Pulse Oximetry 97 99 98 Oxygen Delivery Fraction of Inspired Oxygen 08/21/23 11:30 08/21/23 12:01 08/21/23 12:30 Temperature 97.9 F Pulse Rate 87 93 90 Respiratory Rate 20 24 H 20 Blood Pressure 143/88 H 145/90 H 142/82 H Pulse Oximetry 99 99 99 Oxygen Delivery Fraction of Inspired Oxygen 08/21/23 13:00 08/21/23 16:00 08/21/23 18:10 Temperature 98.1 F Pulse Rate 90
[2023-08-22] MEDS: guaiFENesin/CODEINE (*CRX) 200/20 MG 10 ML SYRUP PO (10:17)
[2023-08-22 11:05] VITALS: PULSE 84; RESP 18
--- NOTE | 2023-08-22 13:35 | PM.DS ---
DS: Admitting Diagnosis Discharge Date 08/22 Admitting Diagnosis cough, shortness of breath DS: Discharge Diagnosis Discharge Diagnosis (1) Influenza A: Code(s): J10.1 - Influenza due to other identified influenza virus with other respiratory manifestations Status: Acute (2) Hypokalemia: Code(s): E87.6 - Hypokalemia Status: Acute (3) Cough: Code(s): R05.9 - Cough, unspecified Status: Acute (4) Shortness of breath: Code(s): R06.02 - Shortness of breath Status: Acute (5) Depression with anxiety: Code(s): F41.8 - Other specified anxiety disorders Status: Acute Plan The patient presented to the emergency department for evaluation of cough, fever, and shortness of breath as detailed in HPI. Labs, imaging, EKG, and all reports were personally reviewed. She tested positive for influenza. She has been symptomatic since and her fever has resolved thus there does not seem to be an indication for Tamiflu. She has an incessant cough and shortness of breath, especially while walking. She has not been hypoxic however and chest x-ray was clear. Nebulizer and methylprednisolone did seem to help for a short period of time. She has mild wheezing thus will continue with albuterol as needed. Hold on further steroids for now. Potassium will be replaced and monitored. Guaifenesin with codeine ordered as needed to help with the cough. She may take her SSRI from home. Findings and treatment plan were discussed with the patient. Questions were solicited and answered to satisfaction. The patient's medical management will be taken over by the hospitalist team in a.m. DS: Summary Hospital Course Hospital Course: This is a 28-year-old female with depression and anxiety presented to the emergency department via private vehicle for evaluation of cough, shortness of breath, and fever. The patient provides the following history. She has not been feeling well since with sore throat, cough, sinus congestion, decreased appetite, body aches, loose stools, and temperature up to 104? F. She has a relentless cough and feels like she is not able to catch her breath. She did a home COVID test which was negative. 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 Today she tested positive for influenza A. She received a nebulizer treatment and IV methylprednisolone in the ED which seemed to help her cough for may be 45 minutes. CMP and CBC were pretty unremarkable aside from a potassium of 3.0. Chest x-ray was clear. Due to continued cough and significant shortness of breath with ambulation (vital signs were stable) she is being admitted overnight for observation. She has no history of asthma or COPD. Nonsmoker, denies vaping. 08/22: Seen resting in bed. She has an awful, congested cough. She denies shortness of breath but is congested. No fever or chills today. She just feels tired and weak. Will discharge home today with conservative therapies for flu A. Patient is agreeable to this. Status at Discharge Cognitive/behavioral status at discharge: A&Ox4. Time Spent with Patient Time attestation: Total time spent providing and/or coordinating discharge services:45 Exam Narrative: General: ill appearing, well developed, well nourished, appears stated age. HEENT: normocephalic, atraumatic. Mucous membranes moist. EOMI, PERRLA, bilateral sclera anicteric, no conjunctival injection. Neck supple without JVD, lymphadenopathy, or bruit. Respiratory: Coarse lung sounds to auscultation bilaterally. No rales/rhonic/wheezes. Cardiovascular: Regular rate and rhythm, normal S1-S2 upon auscultation. No murmurs, rubs, or clicks. PMI is nondisplaced, capillary re-fill less than 3 second. Abdomen: Soft, flat, no pulsatile masses, non-distended and non-tender. No rebound, no guarding. No CVA tenderness, no hepatosplenomegaly. Bowel sounds present to all four quadrants. No high pitch or tinkling sounds, resonant to per
== END 2023-08-22 14:25 | disposition home or self-care (01) ==
LOC: ANHED 08:14 → ANH3MEDSUR 17:55
PROVIDERS: Physician Assistant; Admitting Provider Student in an Organized Health Care Education/Training Program; Emergency Provider Emergency Medicine; PCP Family Medicine; Visit Provider Student in an Organized Health Care Education/Training Program
DX: J10.1 Influenza due to other identified influenza virus with other respiratory manifestations (principal); E87.6 Hypokalemia; J32.9 Chronic sinusitis, unspecified; R06.02 Shortness of breath; F41.8 Other specified anxiety disorders; R63.0 Anorexia; Z20.822 Contact with and (suspected) exposure to COVID-19; Z68.35 Body mass index [BMI] 35.0-35.9, adult; F32.A Depression, unspecified; Z79.899 Other long term (current) drug therapy
CPT/HCPCS: 36415; 71045; 80048; 80053; 83735; 85025; 87636; 94640; 96374; 96375; 99285; A9270; G0378; J2270; J2930; J7512